=== PATIENT | female | born 1955 | race Caucasian/White ===

== ENCOUNTER → 2016-10-22 | Outpatient (CLI) | payer OTHER | END | disposition home or self-care (01) | LOC: US 13:52 → MA 13:52 → US 14:00 | PROC: BH01ZZZ Plain Radiography of Left Breast (ICD-10-PCS; principal; 2016-10-22) | DX: R59.9 Enlarged lymph nodes, unspecified (principal) | CPT/HCPCS: G0206 ==

== ENCOUNTER → 2017-03-04 | Outpatient (CLI) | payer OTHER | END | disposition home or self-care (01) | LOC: MA 12:49 | PROC: BH01ZZZ Plain Radiography of Left Breast (ICD-10-PCS; principal; 2017-03-04) | DX: R92.2 Inconclusive mammogram (principal) | CPT/HCPCS: G0206 ==